=== PATIENT | female | born 2000 | race Caucasian/White ===

== ENCOUNTER 2018-10-17 12:09 | Emergency (ER) | payer OTHER ==
--- NOTE | 2018-10-17 13:22 | EDPHY ---
H & P Time Seen by Provider: 10/17/18 12:57 HPI/ROS: CHIEF COMPLAINT: Back pain HISTORY OF PRESENT ILLNESS: The patient is a 18-year-old female presents emergency department with back pain. Patient states "my SI joints on both sides hurt."Patient states she has had chronic back pain for 4-5 years. She has seen her primary care physician for this. She is going to physical therapy but had no relief. Patient states that over the past month she has had increasing left SI joint pain. For the past 3 days it is worsened. Today while in class she developed right SI joint pain. This was severe. This caused her to become clammy and sweaty. She had nausea and vomiting. She subsequently felt bilateral hand tingling and numbness. She also had bilateral face numbness after the vomiting episode. The patient has no numbness or tingling at this time. No weakness or loss of sensation. No incontinence of urine or stool. No fevers or chills. No recent fall. Patient denies any abdominal pain. REVIEW OF SYSTEMS: 10 systems were reveiwed and are negative with the exception of the elements mentioned in the history of present illness. Past Medical/Surgical History: Includes low back pain Social history: The patient is a student at [employer] Smoking Status: Never smoked Physical Exam: Vitals noted GENERAL: Well-appearing, in no acute distress, alert. HEENT: Eyes normal to inspection, normal pharynx, no signs of dehydration. NECK: Normal, supple. RESPIRATORY: Clear to auscultation bilaterally, no rales, rhonchi or wheezing. CVS: Regular rate and rhythm, no rubs, murmurs, or gallops. ABDOMEN: Soft, nontender, nondistended, no organomegaly. Completely benign. BACK: Normal to inspection, no CVA tenderness. No spinal tenderness. No deformity. Mild bilateral a SI tenderness to palpation. SKIN: Normal color, no rash, warm, dry. No pallor. EXTREMITIES: No pedal edema, no calf tenderness, no Homans sign or cords, no joint swelling. NEURO/PSYCH: Alert and oriented, normal mood and affect, normal motor sensory exam. No focal deficits. Ambulates without difficulty. Constitutional: Initial Vital Signs Temperature (C) 36.6 C 10/17/18 12:14 Heart Rate 86 10/17/18 12:14 Respiratory Rate 18 10/17/18 12:14 Blood Pressure 123/90 H 10/17/18 12:14 O2 Sat (%) 98 10/17/18 12:14 O2 Delivery Mode Room Air Allergies/Adverse Reactions: amoxicillin [From Augmentin] Allergy (Verified 10/17/18 12:14) clavulanic acid [From Augmentin] Allergy (Verified 10/17/18 12:14) Home Medications: Medication Instructions Recorded Cyclobenzaprine [Flexeril] 10 mg PO TID #15 tab 10/17/18 Hydrocodone/APAP 5/325 [Blanchard 1 - 2 tab PO Q4 #7 tab 10/17/18 5/325 (RX)] Ibuprofen [Ibu] 600 mg PO TID #13 tablet 10/17/18 Medical Decision Making ED Course/Re-evaluation: In the emergency department I discussed possible etiologies with the patient. I answered all her questions. This time I do not feel she needs imaging. I do not feel this represents a gynecologic or intra-abdominal emergency. Patient will be treated with Flexeril, ibuprofen and Vicodin. She will be given follow- up for back specialists. Patient was given warnings prior to leaving. She will return worsening symptoms. Differential Diagnosis: My differential includes but is not limited to back pain, disc herniation, sciatica, ovarian cyst, ovarian torsion, kidney stone, dissection, aneurysm Departure - Departure Disposition: Home, Routine, Self-Care Clinical Impression: Low back pain Qualifiers: Chronicity: acute Back pain laterality: bilateral Sciatica presence: with sciatica Sciatica laterality: bilateral sciatica Qualified Code(s): M54.42 - Lumbago with sciatica, left side; M54.41 - Lumbago with sciatica, right side; M54.41 - Lumbago with sciatica, right side Condition: Fair Instructions: Acute Low Back Pain (ED), Sciatica (ED) Referrals: [facility] [Other] - As per Instructions Mu Gilbert MD [Medical Doctor] - 5-7 days, call for appt. Michael Peres MD [Medical Doctor] - 5-7 days, call for appt. Prescriptions: Cyclobenzaprine [Flexeril] 10 mg PO TID #15 tab Hydrocodone/APAP 5/325 [Blanchard 5/325 (RX)] 1 - 2 tab PO Q4 #7 tab Ibuprofen [Ibu] 600 mg PO TID #13 tablet
[2018-10-17 13:45] VITALS: BP 118/76
== END 2018-10-17 13:45 | disposition home or self-care (01) ==
DX: M54.42 Lumbago with sciatica, left side (principal); M54.41 Lumbago with sciatica, right side

== ENCOUNTER → 2018-10-29 | Outpatient (CLI) | payer OTHER | LOC: FIMAGING 15:53 | PROVIDERS: ATTEND Neurological Surgery | DX: M54.16 Radiculopathy, lumbar region (principal) ==